=== PATIENT | female | born 1990 | race Caucasian/White ===

== ENCOUNTER 2018-05-01 21:59 | Emergency (ER) | payer OTHER ==
[2018-05-01] MEDS ORDERED: Adacel (T-DAP) 0.5 ML VIAL ONE ×2 (22:33→22:36)
== END 2018-05-01 22:45 | disposition home or self-care (01) ==
LOC: ERS 21:59
DX: Z77.21 Contact with and (suspected) exposure to potentially hazardous body fluids (principal)
CPT/HCPCS: 90471; 90715